=== PATIENT | female | born 1955 | race Caucasian/White ===

== ENCOUNTER 2023-08-05 06:35 | Day surgery (SDC) | payer MEDICARE, OTHER, SELFPAY ==
[2023-08-05 07:47] VITALS: BMI 21.5
[2023-08-05 07:57] VITALS: BP 120/77
[2023-08-05 08:02] VITALS: BMI 21.5
[2023-08-05 11:28] VITALS: BP 117/87
[2023-08-05 11:30] VITALS: BP 128/84
[2023-08-05 11:45] VITALS: BP 138/89
== END 2023-08-05 12:20 | disposition home or self-care (01) ==
LOC: SDS 06:35
PROVIDERS: ATTENDING PHYSICIAN Internal Medicine Gastroenterology
DX: C18.4 Malignant neoplasm of transverse colon (principal); K64.0 First degree hemorrhoids; K57.30 Diverticulosis of large intestine without perforation or abscess without bleeding; T18.4XXA Foreign body in colon, initial encounter; W44.8XXA Other foreign body entering into or through a natural orifice, initial encounter; K63.5 Polyp of colon
CPT/HCPCS: 45390; 88305; 88342

== ENCOUNTER → 2023-08-10 12:25 | Outpatient (REF) | payer MEDICARE, OTHER, SELFPAY ==
[2023-08-10 13:44] LABS: ALT (SGPT) 16 U/L (0-35); AST (SGOT) 30 U/L (14-36); Albumin 4.5 g/dl (3.5-5.0); Alkaline Phosphatase 102 U/L (38-126); Blood Urea Nitrogen 31 mg/dl (7-17); Calcium 10.8 mg/dl (8.4-10.2); Carbon Dioxide 30 mmol/L (22-30); Chloride 103 mmol/L (98-107); Glucose 91 mg/dl (70-99); Potassium 4.5 mmol/L (3.5-5.1); Sodium 141 mmol/L (135-145); Total Bilirubin 1.6 mg/dl (0.2-1.3); Total Protein 7.4 g/dl (6.3-8.2); eGFR 54.39
[2023-08-10 16:25] LABS: Direct Bilirubin 0.5 mg/dl (0.0-0.4)
== END ==
LOC: REG 12:25
PROVIDERS: ATTENDING PHYSICIAN Internal Medicine Gastroenterology; FAMILY PHYSICIAN Internal Medicine
DX: C18.4 Malignant neoplasm of transverse colon (principal)
CPT/HCPCS: 36415; 80053; 82248; 82378

== ENCOUNTER → 2023-08-11 14:12 | Outpatient (REF) | payer MEDICARE, OTHER, SELFPAY | LOC: HWRAD 14:12 | PROVIDERS: ATTENDING PHYSICIAN Internal Medicine Gastroenterology; FAMILY PHYSICIAN Internal Medicine | DX: C18.4 Malignant neoplasm of transverse colon (principal) | CPT/HCPCS: 71260; 74178; Q9967 ==

== ENCOUNTER → 2023-08-12 13:30 | Outpatient (REF) | payer MEDICARE, OTHER, SELFPAY | LOC: RAD 13:30 | PROVIDERS: ATTENDING PHYSICIAN Surgery; FAMILY PHYSICIAN Internal Medicine | DX: C18.4 Malignant neoplasm of transverse colon (principal) | CPT/HCPCS: 74019 ==

== ENCOUNTER 2023-09-03 12:42 | Inpatient (IN) | payer MEDICARE, OTHER, SELFPAY ==
[2023-08-31 12:03] VITALS: BMI 22.6
[2023-08-31 14:45] LABS: Blood Urea Nitrogen 22 mg/dl (7-17); Calcium 9.3 mg/dl (8.4-10.2); Carbon Dioxide 20 mmol/L (22-30); Chloride 110 mmol/L (98-107); Estimated Creatinine Clearance 55 ml/min; Glucose 89 mg/dl (70-99); Potassium 4.4 mmol/L (3.5-5.1); Sodium 141 mmol/L (135-145); eGFR > 60.00
[2023-08-31 14:50] LABS: INR 1.32; PT 16.2 Sec (11.4-14.6)
[2023-08-31 14:51] LABS: APTT 35.1 Sec (23.4-35.0)
--- NOTE | 2023-09-01 09:03 | PTCARENOTE ---
Patients 08/30 INR 1.32- Trina @ Dr. Martinez office notified
[2023-09-03] VITALS (9 sets, daily range): BP systolic 85–113; BP diastolic 66–81
[2023-09-03] MEDS: CELEBREX 200 MG PO (13:08)
[2023-09-03] MEDS: ENTEREG 12 MG PO (13:08)
[2023-09-03] MEDS: LYRICA 150 MG PO (13:09)
[2023-09-03] MEDS: TYLENOL 1000 MG PO (13:11)
[2023-09-03] MEDS: TRANSDERM-SCOP 1 PATCH TRANSDERM (13:15)
[2023-09-03 13:16] LABS: Hematocrit 27.6 % (37.0-47.0); Hemoglobin 8.9 g/dL (12.0-16.0); Mean Corp Hgb Conc. 32.2 g/dL (33.0-37.0); Mean Corpuscular Hgb 28.6 pg (27.0-31.0); Mean Corpuscular Volume 88.7 fL (81.0-99.0); Mean Platelet Volume 10.4 fL (7.4-10.4); Platelet Count 84 10^3/uL (130-400); Red Blood Cell Count 3.11 10^6/uL (4.20-5.40); White Blood Cell Count 4.4 10^3/uL (4.8-10.8)
[2023-09-03] MEDS: NORMOSOL-R 1000 IV ×2 (13:16→21:22)
[2023-09-03] MEDS: HEPARIN 5000 UNITS SC (14:28)
--- NOTE | 2023-09-03 19:11 | W.IMMPOSTOP ---
Addendum entered and electronically signed by Demarcus Harper MD 09/03/23 19:46:
Spoke with daughter Taylor via phone and updated her on patient's status
Original Note:
Surgical Immed Post Op Note
-
Primary Surgeon: Demarcus Harper MD
Assisting Surgeon: KIAN Mckeon
Pre-op Diagnosis: Ascending colon cancer
Post-op Diagnosis: Ascending colon cancer
Procedure Performed: Robotic right hemicolectomy, mesenteric angiography with ICG, laparoscopic TAP block
Anesthesia Type: General
Specimen / Cultures: Right hemicolectomy
Estimated Blood Loss: 25 mL
IVF: 2.8 L
UOP 85 mL
Complications: None
Operative Findings: Attempted Veress entry but returned clear fluid; performed Pfannenstiel cutdown; clear ascites was encountered on entry; explored abdomen; small deejay in liver capsule from Veress entry, not bleeding; liver very large and
fibrotic; no evidence of mets to the liver or peritoneum; identified tattoo at mid ascending colon; performed medial to lateral mobilization and performed high ligation ileocolic pedicle; entered the lesser sac and mobilized proximal transverse
colon and hepatic flexure; stapled terminal ileum 3 cm proximal from the ileocecal valve with 60 mm blue load; performed high ligation of the right colic and right branch of the middle colic; performed ICG and selected point in mid transverse for
transection; divided remainder of mesentery and stapled transverse colon with 60 mm blue load; performed isoperistaltic ileocolic stapled anastomosis with the 60 mm white load and oversewed, defect with 3-0 Stratafix
--- NOTE | 2023-09-03 19:35 | OR.RPT ---
Operative Report
Operative Report
DATE OF OPERATION: 09/03/2023
SURGEON: Demarcus Harper MD
PREOPERATIVE DIAGNOSIS: Ascending colon cancer
POSTOPERATIVE DIAGNOSIS: Ascending colon cancer
OPERATION: Robotic right hemicolectomy, mesenteric angiography with ICG, laparoscopic TAP block
ASSISTANTS:
1. KIAN Mckeon
ANESTHESIA: General
ESTIMATED BLOOD LOSS: 25 mL
UOP: 85 mL
IVF: 2.8 L mL
FINDINGS:
1. No concerning mets to the liver or peritoneum; liver was large and fibrotic; there were dilated mesenteric veins
2. Tattoo was in the mid ascending colon; performed high ligation of the ileocolic pedicle, the right colic and right branch of the middle colic
3. Performed ileal to mid transverse isoperistaltic stapled intracorporeal anastomosis; perfusion confirmed with firefly
SPECIMENS:
1. Right hemicolectomy
DRAINS: None
COMPLICATIONS: None
INDICATIONS: The patient is a 68-year-old female who underwent a colonoscopy in March [address] Pop. She had multiple subcentimeter tubular adenomas and a 1.5 cm transverse colon polyp that was tattooed. Dr. Valdez performed a
full-thickness resection of this polyp via colonoscopy and placed a clip for closure. The pathology came back adenocarcinoma with a positive margin. Therefore, I recommended surgery. An x-ray showed that the clip was in the ascending colon. The
operation was discussed with the patient in detail, including the risks, benefits and alternatives. Risks described included, but not limited to, bleeding, infection, anastomotic leak, damage to nearby structures (i.e.- bowel, bladder, solid organ
injury, ureter), need for ostomy creation, conversion to open, incisional hernia, inability to remove the entire cancer, future recurrence or metastasis and anesthetic risks. The patient understood and agreed to proceed.
PROCEDURE IN DETAIL: The patient was taken to the operating room and placed on the operating table in supine position. Sequential compression devices were placed bilaterally. General anesthesia was then induced and the patient was intubated without
complication. Bilateral arms were tucked. Gayle catheter was placed with sterile technique. Anesthesia placed an orogastric tube. Preoperative antibiotics were given. The abdomen was then prepped and draped in a sterile fashion. A marking pen
was used to adriana out the midline. A time-out was then performed verifying the correct patient, procedure, operative site, positioning, and special equipment.
At Groves's point, using an 11 blade scalpel, an 8 mm incision was made. A Veress needle was used to obtain abdominal access. After 3 clicks, insufflation was initiated and the opening pressure was noted to be greater than 8 mmHg. The Veress was
removed and serous fluid was noted dripping from the tip. A second attempt at needle placement was performed, but the 3 clicks were not obvious. I decided to start with a Pfannenstiel cutdown and removed the Veress. Again, clear fluid was noted
dripping from the tip. A 5 cm Pfannenstiel incision was made with a 15 blade scalpel 2 fingerbreadths superior to the pubic symphysis. I took this down to the level of fascia with Bovie electrocautery and hemostasis was assured. The anterior
fascia was then incised with electrocautery and extended to just beyond the length of the Pfannenstiel incision on each side. Using madeleine's, the anterior fascia was grasped and elevated. The attachments to the rectus muscle were taken down
bluntly and attachments to the midline were taken down with electrocautery. This was done both superiorly and inferiorly to our incision. Then, the midline was split, first with electrocautery and then with Kellys to spread the rectus muscle. The
preperitoneal fat was and the peritoneum was grasped and elevated. The peritoneum was divided with Metzenbaum scissors, taking care to avoid injury to intraperitoneal structures, and the abdomen was entered. The peritoneum was opened
superiorly and inferiorly to the extent that our incision would allow, taking care to avoid injury to the bladder. A small Taran was placed and a port cap attached. The 12 mm robotic port was placed through the port cap. The abdomen was
insufflated to a pressure of 12, which the patient tolerated well. The abdomen was explored. I identified the entry point of the Veress needle and immediately below it was a deejay on the liver capsule. However, there was no bleeding from the neck
on the liver capsule, so this was likely superficial. The liver was very large and extended across the entire upper abdomen. The liver had fibrotic changes to it with a liver cyst on the anterior left lobe. No concerning liver mets were noted.
No peritoneal lesions were noted. Within the pelvis, there were dilated veins within the distribution of the colon mesentery, concerning for possible portal hypertension. During the operation, dilated veins were also noted in the mesentery of the
right colon. The tattoo was not obviously visualized at this point.
In a diagonal fashion from the Pfannenstiel incision to the Groves's point incision, 2 more robotic trocars were placed under direct visualization taking care to avoid injury to the epigastric vessels. An assist port was placed in the left lateral
abdomen under direct visualization as well. Then, the patient was placed in [id number] with slight Trendelenburg. The robot was docked from the patient's right side. From the Pfannenstiel to Groves's point, the instruments introduced were the
bipolar grasper, camera, scissors and tip up grasper. To begin, I grasped and elevated the cecum. I swept the small bowel towards the pelvis. Using my tip-up grasper, I retracted the transverse colon. The ileocolic pedicle was nicely exposed. A
medial to lateral mobilization was performed by first incising the peritoneal lining just below the pedicle using the robotic scissors. I elevated the pedicle anteriorly and swept the retroperitoneum down bluntly in order to identify the duodenum.
Once the duodenum was swept away from the takeoff of the ileocolic pedicle, I isolated the ileocolic pedicle circumferentially and performed a high ligation using the vessel sealer. The ileocolic stump was hemostatic. I continued my medial to
lateral dissection up to the hepatic flexure and then below the right colon and cecum, taking care to avoid injury to the duodenum, right kidney and right ureter.
After the right colon was completely mobilized medially, I turned my attention to the transverse colon. I grasped and elevated the omentum while retracting the transverse colon caudally. I divided the gastrocolic ligament and entered the lesser
sac. I carried this dissection around the hepatic flexure using a combination of blunt dissection and the vessel sealer, taking care to avoid injury to the liver, gallbladder, duodenum and pancreas. Once the hepatic flexure was completely mobilized,
I continued this dissection by taking down the white line of Toldt to my previous dissection of the cecum. I mobilized the attachments of the appendix, terminal ileum and its mesentery from the RLQ and right pelvic brim, taking care to avoid injury
to the right ureter. At this point, the entire cecum, right colon and hepatic flexure were nicely mobilized. I selected a point about 2�3 cm proximal from the ileocecal valve and elevated this with my tip up grasper. I grasped the transected
ileocolic pedicle on the specimen side and used the vessel sealer to serially ligate the mesentery up to my selected point on the terminal ileum. I stapled and divided the terminal ileum with the 60 mm robotic stapler with a blue load.
Next, I grasped the transverse colon and elevated this in order to expose and visualize the mesentery. I serially divided the mesentery towards the mid transverse colon, taking care to avoid injury to the duodenum and pancreas, ligating the right
colic and the right branch of the middle colic as close to its takeoff as possible. I continued this up to the mid-transverse colon. Anesthesia injected ICG and I confirmed adequate perfusion to my intended transection point. I cleaned up the
mesentery and epiploica circumferentially from this point. Using the 60 mm robotic stapler with a blue load, I stapled and divided the transverse colon. The specimen was then placed in the pelvis.
I examined the bowel for my future anastomosis. I placed the terminal ileum adjacent to the transverse colon. This aligned nicely for a [id number] isoperistaltic anastomosis without any evidence of tension. The angle from the Pfannenstiel port
was estimated and the stapler would reach for the anastomosis. I measured 7 cm distal from the staple line on the transverse colon and 2 cm proximal from the staple line on the terminal ileum. I then created a colotomy at about 7 cm distal to the
staple line on the transverse colon and an enterotomy 2 cm proximal to the staple line on the terminal ileum. I advanced the 60 mm robotic stapler with a white load through the bowel openings, ensured ideal alignment and fired. After the robotic
stapler was withdrawn, no bleeding was noted from the staple line. The common defect was then closed using a 3-0 V-Loc suture in 2 layers, starting from the superior aspect and sewing inferiorly in a running baseball fashion, and then superiorly in
a running Jeanette fashion in order to imbricate the first layer.
After the anastomosis was complete, the operative field was examined. There was complete hemostasis, no bowel herniating through the mesenteric defect and good perfusion to our anastomosis without any evidence of tension. The greater omentum was
evaluated and appeared well-vascularized. The omentum was then draped over the anastomosis.
The instruments were removed and the robot was undocked. The specimen was removed through the Pfannenstiel incision. The specimen was evaluated on the back-table and the margins were noted to be adequate. A TAP block was performed under
laparoscopic guidance. 15mL of 0.25% Marcaine with dexamethasone was injected bilaterally. The ports were then removed under direct visualization and no bleeding was noted. The abdomen was allowed to desufflate. The Pfannenstiel incision was
closed in layers. Using an 0 Vicryl stitch, the peritoneum was closed in a running fashion. The fascia was closed with a 0 Stratafix suture. The incisions were irrigated and then injected with the remaining 30mL of local. The skin of the
incisions were closed with a 4-0 Monocryl in running subcuticular fashion and dressed with Dermabond.
At this point, the procedure was complete. The patient was awoken and extubated without complication. All needle, sponge and instrument counts were reported as correct. The patient tolerated the procedure well and was transferred to the recovery
room in stable condition with the gayle in place.
DICTATED BY: Demarcus Harper MD
--- NOTE | 2023-09-03 19:49 | CON.HOSP ---
Family Physician
-
Family Physician: Jules Masterson
Chief Complaint
-
postop
History of Present Illness
68-year-old female past medical history of ascending colon cancer, Hodgkin's lymphoma, ITP, atrial fibrillation on Xarelto, AV block status post pacemaker, nonischemic cardiomyopathy, severe tricuspid regurgitation, GERD who underwent robotic right
hemicolectomy for ascending colon cancer. Procedure went smoothly and patient required low-dose Levophed during the procedure which was eventually weaned off.
Patient had minimal blood loss during surgery. She received 2 L of IV fluids during the surgery.
Patient currently has a Newton catheter. No drains present. She is currently on 4 L facemask, still asleep after receiving anesthesia. Systolic blood pressure in the 90s. She is currently receiving IV fluids.
Medical History
Past Medical History
Past Medical History: Reports Other (ascending colon cancer, Hodgkin's lymphoma, ITP, atrial fibrillation on Xarelto, AV block status post pacemaker, nonischemic cardiomyopathy, severe tricuspid regurgitation, GERD)
Past Surgical History: Reports Other (pacemaker )
Social History
Tobacco: Non-smoker
Alcohol: None
Drug: None
Family History
Family History: Reviewed & Not Pertinent
Allergies / Home Medications
Allergies reflects when Allergies were last updated in [facility].
Home Medications with original date entered in [facility]
Allergy/Medication List:
Allergies
Allergy/AdvReac Type Severity Reaction Status Date / Time
No Known Drug Allergies Allergy NA Verified 08/30/23 11:39
pollen extracts Allergy congestion Verified 08/30/23 11:39
Home Medications
calcium carbonate 600 mg-vitamin D3 5 mcg (200 unit) tablet 1 tab PO BID 08/05/23
carvedilol 25 mg tablet 25 mg PO BID 08/05/23
rivaroxaban 20 mg tablet (Xarelto) 20 mg PO DAILY 08/05/23
sodium sul 1.479 gram-potas ch 0.188 gram-magnes sul 0.225 gram tablet (Sutab) 1 tab PO DIRECTED 08/30/23
Review of Systems
-
Unable to obtain full review of systems at this time due to: Patient Non-verbal
History Source: Physician
A 12 point Review of Systems was completed except as noted: No
Physical Exam
Vital Signs
Vital Signs
Temp Pulse Resp BP Pulse Ox
97.2 F 70 16 110/67 98
09/03/23 12:31 09/03/23 12:31 09/03/23 12:31 09/03/23 12:31 09/03/23 12:31
Physical Exam
General: Well Developed, Well Nourished and No Apparent Distress
HEENT: Normocephalic, Moist Mucous Membranes and Atraumatic
Respiratory: Clear
Cardiac: S1/S2 and Regular Rhythm; Negative Murmur or Rub
GI: Soft, Non Tender, Non Distended and Normal Bowel Sounds
Rectal: Deferred by Provider
Musculoskeletal: No Clubbing, No Cyanosis and No Edema
Skin: Negative Rash
Neuro: Nonfocal/Grossly Intact
Laboratory Results
-
PT 16.2 Sec (11.4-14.6) H 08/31/23 11:57
INR 1.32 08/31/23 11:57
APTT 35.1 Sec (23.4-35.0) H 08/31/23 11:57
Total Bilirubin Cancelled 08/31/23 11:57
AST Cancelled 08/31/23 11:57
ALT Cancelled 08/31/23 11:57
Alkaline Phosphatase Cancelled 08/31/23 11:57
Data Reviewed
-
Lab Data: Labs Reviewed
Old Records: Reviewed
Impression / Plan
-
IMPRESSION:
PLAN:
# Ascending colon cancer status post right hemicolectomy
-systolic BP 90s
-Being managed by colorectal surgery
-Patient currently off of Levophed
-Maintain MAP greater than 65
-Continue IV fluids
# Normocytic anemia unknown chronicity
-Hemoglobin 8.9
-Continue to monitor
Hodgkin's lymphoma
ITP
-Platelets of 84, continue to monitor
Paroxysmal atrial fibrillation
-Hold Xarelto
History of AV block status post pacemaker
Nonischemic cardiomyopathy
-Hold Coreg
-Chest x-ray from 3 days ago showing small right pleural effusion, moderate cardiomegaly
-Patient currently on 4 L facemask, but suspect can wean off when she is awake
-check I/Os
-Monitor for heart failure
Severe tricuspid regurgitation
GERD
[2023-09-03 19:59] LABS: % Basophils 0.7 % (0-2); % Eosinophils 0.4 % (0-6); % Immature Granulocytes 0.4 % (0-0.5); % Lymphocytes 6.7 % (20.5-51.1); % Monocytes 1.6 % (1.7-9.3); % Neutrophils 90.2 % (42.2-75.2); Absolute Lymphocytes 0.3 10^3/uL (1.2-3.4); Absolute Monocytes 0.1 10^3/uL (0.1-0.6); Hematocrit 26.5 % (37.0-47.0); Hemoglobin 8.3 g/dL (12.0-16.0); Mean Corp Hgb Conc. 31.3 g/dL (33.0-37.0); Mean Corpuscular Hgb 28.3 pg (27.0-31.0); Mean Corpuscular Volume 90.4 fL (81.0-99.0); Mean Platelet Volume 10.4 fL (7.4-10.4); Nucleated Red Blood Cells % 0 %; Platelet Count 66 10^3/uL (130-400); Red Blood Cell Count 2.93 10^6/uL (4.20-5.40); Red Cell Dist. Width 14.2 % (11.5-14.5); White Blood Cell Count 4.5 10^3/uL (4.8-10.8)
[2023-09-03 20:13] LABS: Blood Urea Nitrogen 17 mg/dl (7-17); Calcium 7.5 mg/dl (8.4-10.2); Carbon Dioxide 20 mmol/L (22-30); Chloride 108 mmol/L (98-107); Estimated Creatinine Clearance 71 ml/min; Glucose 122 mg/dl (70-99); Magnesium 2.3 mg/dl (1.6-2.3); Sodium 137 mmol/L (135-145); eGFR > 60.00
--- NOTE | 2023-09-03 23:37 | PTCARENOTE ---
Pt arrived to ICU room 3362 from PACU at 2100. Pt is s/p robotic right hemicolectomy, x5 laproscopic sites to abd closed with surgical glue. Upon arrival pt not c/o any pain or nausea, and has not had any complaints so far. Tolerated sips of water.
Pt with left radial arterial line, has been maintaining BP without pressors. Normosol infusing at 50ml/hr. 100% v paced on monitor, HR 70. SpO2 98% on 4LNC. See nursing shift assessment flowsheet for full assessment details.
[2023-09-04] VITALS (19 sets, daily range): BP systolic 70–139; BP diastolic 60–98; PULSE 74; O2SAT 97; BMI 23.3
[2023-09-04] MEDS: TYLENOL PO (00:15)
[2023-09-04] MEDS: TYLENOL 1000 MG PO ×4 (04:39→23:38)
[2023-09-04] MEDS: NORMOSOL-R 1000 IV ×2 (04:43→23:38)
[2023-09-04 04:51] LABS: % Basophils 0.2 % (0-2); % Immature Granulocytes 0.3 % (0-0.5); % Lymphocytes 7.6 % (20.5-51.1); % Monocytes 1.9 % (1.7-9.3); Absolute Lymphocytes 0.5 10^3/uL (1.2-3.4); Absolute Monocytes 0.1 10^3/uL (0.1-0.6); Absolute Neutrophils 5.7 10^3/uL (1.4-6.5); Hematocrit 27.3 % (37.0-47.0); Hemoglobin 8.9 g/dL (12.0-16.0); Mean Corp Hgb Conc. 32.6 g/dL (33.0-37.0); Mean Corpuscular Hgb 29.2 pg (27.0-31.0); Mean Corpuscular Volume 89.5 fL (81.0-99.0); Mean Platelet Volume 11.6 fL (7.4-10.4); Nucleated Red Blood Cells % 0 %; Platelet Count 79 10^3/uL (130-400); Red Blood Cell Count 3.05 10^6/uL (4.20-5.40); Red Cell Dist. Width 14.1 % (11.5-14.5); White Blood Cell Count 6.4 10^3/uL (4.8-10.8)
[2023-09-04 05:02] LABS: INR 1.34; PT 16.7 Sec (11.4-14.6)
[2023-09-04 05:03] LABS: APTT 35.1 Sec (23.4-35.0)
--- NOTE | 2023-09-04 05:08 | PTCARENOTE ---
Assessment unchanged. O2 weaned to 2LNC and pt has been maintaining SpO2 97%. BP has been WNL all shift, most recently in 120s-130s/70s-80s on both arterial line and cuff. No c/o pain or nausea. Pt has been sleeping most of the shift.
[2023-09-04 05:30] LABS: Blood Urea Nitrogen 16 mg/dl (7-17); Calcium 8.1 mg/dl (8.4-10.2); Carbon Dioxide 18 mmol/L (22-30); Chloride 109 mmol/L (98-107); Estimated Creatinine Clearance 71 ml/min; Glucose 120 mg/dl (70-99); Magnesium 2.4 mg/dl (1.6-2.3); Potassium 4.1 mmol/L (3.5-5.1); Sodium 138 mmol/L (135-145); eGFR > 60.00
[2023-09-04] MEDS: ENTEREG 12 MG PO ×2 (07:35→20:37)
[2023-09-04] MEDS: TORADOL 15 MG IV ×3 (08:17→20:37)
--- NOTE | 2023-09-04 09:03 | CON.INTV ---
Consultation
Consultation Request
Date/Time Consultation Requested: 09/04/2023854
Date/Time Consultation Performed: 09/04/2023909
Requesting Provider: Dr. Rubin
Performing Provider: Dr. Nelson
Reason for Consultation: post-op management
Medical History
-
Chief Complaint: Colon mass/Elective right hemicolectomy
History of Present Illness:
68-year-old female nonsmoker with a past medical history of AV block s/p PPM, A-fib on Xarelto and thrombocytopenia who presents with elective right-sided hemicolectomy due to recently diagnosed invasive adenocarcinoma seen at the transverse colon
on colonoscopy from 08/05/2023. She then had a CT chest, abdomen, pelvis on 08/11/2023 showing no evidence of metastatic disease within the chest, abdomen or pelvis with a nonspecific soft tissue nodule/lymph node of 7 mm in the left upper quadrant at
the splenic flexure. There also was a mildly dilated ascending thoracic aorta measuring 4.1 cm. She discussed surgical resection with colorectal surgery on 08/12/[address] Harper. On 09/03/2023 she underwent robotic right hemicolectomy with
mesenteric angiography with indocyanine green fluorescence, and a laparoscopic tap block. EBL was 25 mL and there were no complications. Patient was transferred to the ICU postoperatively and critical care services now consulted for additional
management/recommendations.
When I saw the patient today she was sitting in chair on room air breathing comfortably in no acute distress. Heart rate 77, BP 104/71. She says she is passing gas, no BM since yesterday. She is on a full liquid diet and is tolerating this well.
No acute events reported overnight.
PMHx: Thrombocytopenia, s/p PPM due to AV block, history of Hodgkin's lymphoma, history of A-fib on Xarelto, heartburn
PSHX: s/p pacemaker (1994), tonsillectomy
Past Medical History
Past Medical History: Other (Above as per HPI)
Past Surgical History: Other (Above as per HPI)
Social History
Tobacco: Non-smoker
Alcohol: Occasional (2-3 times a week)
Drug: None
Family History
Family History: Cancer (Father: Colon cancer; mother: Brain cancer)
Allergies / Home Medications
Allergies
Allergy/AdvReac Type Severity Reaction Status Date / Time
No Known Drug Allergies Allergy NA Verified 08/30/23 11:39
pollen extracts Allergy congestion Verified 08/30/23 11:39
Home Medications
�Medication �Instructions �Recorded �Confirmed �Last Taken �Type
calcium carbonate 600 mg-vitamin 1 tab PO BID Supplement 08/05/23 09/03/23 08/27/23 History
D3 5 mcg (200 unit) tablet
carvedilol 25 mg tablet 25 mg PO BID Blood Pressure 08/05/23 09/03/23 09/03/23 11:00 History
rivaroxaban 20 mg tablet (Xarelto) 20 mg PO DAILY Blood Clot 08/05/23 09/03/23 08/29/23 History
Prevention/Tx
sodium sul 1.479 gram-potas ch 1 tab PO DIRECTED 08/30/23 09/03/23 09/02/23 21:00 History
0.188 gram-magnes sul 0.225 gram
tablet (Sutab)
Review of Systems
-
History Source: Patient
All other systems: Negative unless noted
Vitals / Labs / Diagnostic Testing
Vital Signs
Temp Pulse Resp BP Pulse Ox
98.3 F 74 18 127/98 97
09/04/23 07:00 09/04/23 08:45 09/04/23 08:45 09/04/23 08:00 09/04/23 08:15
Lab Data
09/04/23 04:36
09/04/23 04:36
Laboratory Results
09/04/23
04:36
PT 16.7 H
INR 1.34
APTT 35.1 H
Diagnostic Testing:
Physical Exam
-
HEENT: Normocephalic and Anicteric
Cardiovascular: S1/S2 and Peripheral Edema (Negative)
Respiratory: Clear, Wheeze (Negative), Rales (Negative), Rhonchi (Negative) and Non-Labored Respirations
GI: Soft, Non Distended, Non Tender and Normal Bowel Sounds
Neurology: AO x 3 and Tremors (Negative)
Skin: Warm and Dry
General: Comfortable and Chills (Negative)
Assessment
-
Assessment: 68-year-old female nonsmoker with a past medical history of AV block s/p PPM, A-fib on Xarelto and thrombocytopenia who presents with elective right-sided hemicolectomy due to recently diagnosed invasive adenocarcinoma seen at the
transverse colon on colonoscopy from 08/05/2023. She then had a CT chest, abdomen, pelvis on 08/11/2023 showing no evidence of metastatic disease within the chest, abdomen or pelvis with a nonspecific soft tissue nodule/lymph node of 7 mm in the left
upper quadrant at the splenic flexure. There also was a mildly dilated ascending thoracic aorta measuring 4.1 cm. She discussed surgical resection with colorectal surgery on 08/12/[address] Harper. On 09/03/2023 she underwent robotic right
hemicolectomy with mesenteric angiography with indocyanine green fluorescence, and a laparoscopic tap block. EBL was 25 mL and there were no complications. Patient was transferred to the ICU postoperatively and critical care services now consulted
for additional management/recommendations.
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
Impression:
#Invasive adenocarcinoma found on colonoscopy on 08/05/2023 the transverse colon, now s/p robotic right hemicolectomy with mesenteric angiography with ICG and laparoscopic tap block - POD#1
#Anemia
#Chronic thrombocytopenia (baseline plt 80s-100s)
#Non-anion gap metabolic acidosis
Plan:
- Postoperative management as per colorectal surgery
- Pain control
- Trend CBC and transfuse Hb if needed to maintain >7g/dL, and plt>50k (given her post-operative status)
- On full liquid diet --> ADAT as per surgery
- Maintain SpO2 >90-94%
- Maintain MAP>65
- Replete electrolytes with K>4, Mg>2
- Maintain euglycemia with goal BG 140-180
- prn nebulized bronchodilators
- Incentive spirometer encouraged
- DVT ppx
Patient is stable for downgrade out of ICU to IMU. Air Twister Winder/Pulmonary service will now sign off. Thank you for allowing us to be involved in the care of this patient. Please reconsult if there are any additional questions/concerns, or if
patient's respiratory status deteriorates.
Data:
CT Chest/Abd/pelvis 08-11-2023:
1. No definitive evidence for metastatic disease within the chest, abdomen, and pelvis. Nonspecific soft tissue nodule/lymph node measuring up to 7 mm within the left upper quadrant in the region of the splenic flexure.
2. Mildly dilated ascending thoracic aorta measuring 4.1 cm.
3. Cardiomegaly with significant enlargement of the right atrium and ventricle with significant contrast reflux into the hepatic veins and IVC.
Total time spent today was 55 minutes for this encounter. Time includes reviewing laboratory test/imaging results, reviewing pertinent medical records, obtaining and reviewing medical history, performing an appropriate exam, ordering medications,
tests and procedures. Time also includes documentation of this encounter, coordinating patient care and communicating with other healthcare professionals. Total time does not include separately billed tests performed on this date of service.
--- NOTE | 2023-09-04 09:35 | PTCARENOTE ---
Assumed care at 0700. Pt is s/p robotic right hemicolectomy, x5 laproscopic sites to abd closed with surgical glue. Not c/o any pain or nausea. Tolerating sips of water. Pt excessively restless and fidgety. States she can 'see old friends in the
room but then they disappear. Radial arterial line removed due to frequent alarming r/t position and has been maintaining BP without pressors. Normosol infusing at 50ml/hr. 75% v paced on monitor, HR 70. SpO2 97% on RA. Pt assisted OOB to chair with
standby assistance. Chair alarm in place. See nursing shift assessment flowsheet for full assessment details.
--- NOTE | 2023-09-04 10:39 | PTCARENOTE ---
IVF stopped, gayle removed. Scopolamine patch removed due to confusion and restlessness as ordered.
--- NOTE | 2023-09-04 10:54 | CM ---
CM following re:discharge planning.
Reviewed pt's chart, met with pt.
PT is a 68 year old female, admitted with primary dx of POD # 1 Robotic right hemicolectomy.
Pt reports she lives alone in a 2SH, 3 steps to enter, has supportive daughter and a dog. 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 No DME, VN or SNF history.
PCP: Jules Masterson
[facility]
D/C plan: home with anticipated no needs. Daughter to transport at discharge.
CM will follow with discharge plan updates as hospitalization progresses
--- NOTE | 2023-09-04 11:40 | W.PN.CRS1 ---
Today's Communication / Plan
-
Mildly confused but orientable; DC scopolamine and Lyrica
Advance to fulls
DC Newton
Start Lovenox DVT PPx
Assessment/Plan
-
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 Mcclellan), AV block s/p PPM, A-fib (on Xarelto), severe TR, CHF (last EF 55%), GERD, Hodgkin's lymphoma at 23 years old and ascending colon cancer who presents for elective
surgery
POD 1 robotic RHC, tap block
WBC 6.4, Hb 8.9 from 8.3, CR 0.7, UOP 550 for 12 hours
� Mildly confused but oriented, no focal deficits; will DC the scopolamine patch and Lyrica; may also be lingering side effects from anesthesia
� Okay to advance to full liquids, instructed to go slow and discussed with nurse
� Continue pain control with Tylenol, Toradol, low-dose IV Dilaudid as needed; continue Entereg
� Start DVT PPx with Lovenox, hold Xarelto for now
� Ambulate twice daily and OOBTC, encourage IS
� DC Lamar, monitor for void
� Appreciate hospitalist
Subjective Data
Subjective Data
Date of Service: September 04, 2023
No overnight events. Acting a little agitated (picking at wires/lines) and having a hard time focusing, but answering questions appropriately.
Pain controlled.
Denies nausea/vomiting. Tolerating clears.
-flatus -BMs + Newton
Pt is OOB.
Objective Data
-
Vital Signs
Temp Pulse Resp BP Pulse Ox
98.3 F 71 23 121/96 92
09/04/23 07:00 09/04/23 11:00 09/04/23 11:00 09/04/23 10:46 09/04/23 11:00
Intake & Output
09/03/23 09/04/23 09/05/23
06:59 06:59 06:59
Intake Total 960 / 1010 600 / 600
Output Total 550 / 550 235 / 235
Balance 410 / 460 365 / 365
Intake:
Oral fluids 360 / 360 500 / 500
IV fluids (Total) 600 / 650 100 / 100
normosol 600 / 650 100 / 100
Output:
Urine, Newton 550 / 550 235 / 235
Lab Results
09/04/23 04:36
09/04/23 04:36
Physical Exam
-
General: No Acute Distress and AOx3 (Somewhat confused (was unclear about what time of day it was), picking at her wires and lines, easily oriented and answering questions appropriately)
HEENT: Grossly Normal
Abdomen: Soft, Non Distended, Tender (Appropriately tender near incisions), No Guarding and No Rebound
Neurological: Other (No focal deficits, moving all extremities)
Skin: Warm and Dry
Wound: No Signs of Infection, Dressing in Place (Dermabond), No Skin Erythema and Other (No purulent drainage)
--- NOTE | 2023-09-04 11:56 | PTCARENOTE ---
Tolerated clears with no nausea. Pt reported +flatus.
--- NOTE | 2023-09-04 13:25 | W.PN.HOSP.TC ---
Today's Communication/Plan
-
Trend CBC
Restart carvedilol with hold parameters
Monitor for diet well
Monitor mentation
Assessment / Plan
Assessment / Plan
# Ascending colon cancer status post right hemicolectomy
-Being managed by colorectal surgery
-Patient currently off of Levophed
-BP stabilized
-Continue IV fluids
-started on diet-fulls
-Pain control
-TOV today
-Further management per primary
#Toxic metabolic encephalopathy earlier today likely secondary to scopolamine patch versus likely postanesthesia versus delirium
Patch has been removed.
Mentation patient to monitor closely.
# Normocytic anemia unknown chronicity
-Hemoglobin 8.9
-Continue to monitor. Transfuse hemoglobin less than 7.
Hodgkin's lymphoma
ITP
-Platelets of 79continue to monitor
Paroxysmal atrial fibrillation
-Hold Xarelto. Restart pending primary clearance.
History of AV block status post pacemaker
Nonischemic cardiomyopathy
-restart Coreg with holding parameters
-Chest x-ray from 3 days ago showing small right pleural effusion, moderate cardiomegaly
-check I/Os
-Monitor for heart failure
Severe tricuspid regurgitation
DVT prophylaxis SCDs and Xarelto on hold
Anticipated Discharge: > 48 hours
Subjective/Interval History
-
Date of Service: September 04, 2023
Sitting in chair
mild abd discomfort
trying liqudis
Objective Data
-
Labs:
Laboratory Results
09/04/23
04:36
WBC 6.4
Hgb 8.9 L
Hct 27.3 L
Plt Count 79 L
PT 16.7 H
INR 1.34
APTT 35.1 H
Sodium 138
Potassium 4.1
Chloride 109 H
Carbon Dioxide 18 L
BUN 16
Creatinine 0.7
Glucose 120 H
Calcium 8.1 L
Vital Signs:
Vital Signs
Temp Pulse Resp BP Pulse Ox
98.4 F 70 15 104/71 92
09/04/23 11:20 09/04/23 12:45 09/04/23 12:45 09/04/23 12:27 09/04/23 11:00
I&O
09/03/23 09/04/23 09/05/23
06:59 06:59 06:59
Intake Total 960 / 1010 600 / 600
Output Total 550 / 550 235 / 235
Balance 410 / 460 365 / 365
Physical Exam
-
General: Well Developed and No Apparent Distress
HEENT: Normocephalic, Atraumatic and Moist Mucous Membranes
Respiratory: Clear to Auscultation
Cardiac: Regular Rhythm and S1/S2; Negative Murmur, Rub or Gallop
GI: Tender and Distended; Negative Organomegaly
Rectal: Deferred by Provider
Musculoskeletal: No Clubbing, No Cyanosis and No Edema
Skin: Negative Rash
Neuro: Awake and No Motor Deficits
Psych: Calm
--- NOTE | 2023-09-04 16:24 | PTCARENOTE ---
Confusion, restlessness, and hallucinations continue. VSS. Tolerating full liq diet.
--- NOTE | 2023-09-04 17:49 | PTCARENOTE ---
Did not meet DTV after gayle removal. Attempted bladder scan with pt in recliner. Only able to scan 7cc with multiple trys. Pt states feeling no urge to void. Will attempt to scan when returned to bed.
[2023-09-04] MEDS: COREG 25 MG PO (20:37)
--- NOTE | 2023-09-04 21:10 | PTCARENOTE ---
Assumed care of pt at 1900. Pt OOB to chair at start of shift and remains OOB. Pt has been A/O x4 so far this shift, appropriate with responses and pleasant and cooperative with care. Pt acknowledging that she was confused today and 'having problems
with her memory'. Pt ambulated to BR with rolling walker and standby assistance, ambulated with steady gait and then sat back down in chair, chair alarm activated. 100% V Paced on monitor with BBB. Pt reports 3/10 pain to abd, worse after eating and
when standing, no c/o nausea. Scheduled Toradol administered. See nursing shift assessment flowsheet for full assessment details. Call elias and personal belongings within reach.
--- NOTE | 2023-09-04 23:23 | PTCARENOTE ---
Pt's BP has been running low, 80s/60s, MAP >65 and pt is asymptomatic. TT sent to house provider Adrianne WILSON to make her aware, IVF reordered.
[2023-09-05] VITALS (12 sets, daily range): BP systolic 93–123; BP diastolic 68–86; BMI 23.4
[2023-09-05] MEDS: TORADOL 15 MG IV ×2 (02:59→08:12)
[2023-09-05 05:41] LABS: % Basophils 0.4 % (0-2); % Eosinophils 0.5 % (0-6); % Immature Granulocytes 0.4 % (0-0.5); % Lymphocytes 19.4 % (20.5-51.1); % Monocytes 7.6 % (1.7-9.3); % Neutrophils 71.7 % (42.2-75.2); Absolute Lymphocytes 1.5 10^3/uL (1.2-3.4); Absolute Monocytes 0.6 10^3/uL (0.1-0.6); Absolute Neutrophils 5.7 10^3/uL (1.4-6.5); Hematocrit 25.3 % (37.0-47.0); Hemoglobin 8.4 g/dL (12.0-16.0); Mean Corp Hgb Conc. 33.2 g/dL (33.0-37.0); Mean Corpuscular Hgb 28.6 pg (27.0-31.0); Mean Corpuscular Volume 86.1 fL (81.0-99.0); Nucleated Red Blood Cells % 0 %; Platelet Count 85 10^3/uL (130-400); Red Blood Cell Count 2.94 10^6/uL (4.20-5.40); Red Cell Dist. Width 14.1 % (11.5-14.5); White Blood Cell Count 7.9 10^3/uL (4.8-10.8)
[2023-09-05] MEDS: TYLENOL PO (05:46)
[2023-09-05 06:00] LABS: ALT (SGPT) 12 U/L (0-35); AST (SGOT) 26 U/L (14-36); Alkaline Phosphatase 77 U/L (38-126); Blood Urea Nitrogen 32 mg/dl (7-17); Calcium 8.4 mg/dl (8.4-10.2); Carbon Dioxide 23 mmol/L (22-30); Chloride 105 mmol/L (98-107); Estimated Creatinine Clearance 38 ml/min; Glucose 108 mg/dl (70-99); Potassium 4.2 mmol/L (3.5-5.1); Sodium 136 mmol/L (135-145); Total Bilirubin 1.3 mg/dl (0.2-1.3); Total Protein 5.2 g/dl (6.3-8.2); eGFR 44.51
[2023-09-05] MEDS: ENTEREG 12 MG PO (08:12)
[2023-09-05] MEDS: COREG 25 MG PO (08:12)
[2023-09-05] MEDS: NSS 1000 IV ×2 (08:53→17:19)
--- NOTE | 2023-09-05 09:25 | PTCARENOTE ---
Assumed care of pt. VSS. Pt sleeping but easily awakened, oriented, following commands. No restlessness or fidgeting noted at this time. IVF changed as ordered. Plan of care discussed.
--- NOTE | 2023-09-05 10:05 | CON.CAR ---
Consultation
Consultation Request
Date/Time Consultation Requested: 09/05/2023
Date/Time Consultation Performed: 09/05/2023
Requesting Provider: Dr. Harper
Performing Provider: Dr. Singletary
Reason for Consultation: Valvular heart disease
Medical History
-
Chief Complaint: Valvular heart disease
History of Present Illness:
67-year-old female (known to Dr. Dobson, her primary Cadet Deck at [facility]) with heart block status-post permanent pacemaker implantation, paroxysmal atrial fibrillation (on Xarelto), NICM (current EF unknown), severe tricuspid
regurgitation, and recently discovered colon cancer status-post right hemicolectomy on 09/03/2023; Cardiology consulted for valvular heart disease.
Past Medical History
Past Medical History: Arrhythmias (PAF, pacemaker), CHF (Nonischemic cardiomyopathy), Valvular Disease (Tricuspid regurgitation) and Other (Hodgkin's lymphoma, ITP)
Past Surgical History: Bowel Resection (This admission right hemicolectomy ) and Cardiac (Pacemaker)
Social History
Tobacco: Non-Smoker
Alcohol: Occasional
Drug: None
Family History
Family History: Reviewed & Not Pertinent
Allergies / Home Medications
Allergy/AdvReac Type Severity Reaction Status Date / Time
No Known Drug Allergies Allergy NA Verified 08/30/23 11:39
pollen extracts Allergy congestion Verified 08/30/23 11:39
�Medication �Instructions �Recorded �Confirmed �Type
calcium carbonate 600 mg-vitamin 1 tab PO BID Supplement 08/05/23 09/03/23 History
D3 5 mcg (200 unit) tablet
carvedilol 25 mg tablet 25 mg PO BID Blood Pressure 08/05/23 09/03/23 History
rivaroxaban 20 mg tablet (Xarelto) 20 mg PO DAILY Blood Clot 08/05/23 09/03/23 History
Prevention/Tx
sodium sul 1.479 gram-potas ch 1 tab PO DIRECTED Supplement 08/30/23 09/03/23 History
0.188 gram-magnes sul 0.225 gram
tablet (Sutab)
Review of Systems
-
History Source: Patient
All other systems: Negative unless noted
Physical Exam
Vital Signs
Temp Pulse Resp BP Pulse Ox
98.1 F 70 12 107/77 95
09/05/23 08:02 09/05/23 08:00 09/05/23 08:00 09/05/23 08:00 09/05/23 08:00
Lab Results
09/05/23 05:32
09/05/23 05:32
Physical Exam
General: No Apparent Distress and Comfortable
HEENT: Normocephalic and Anicteric
Respiratory: Clear
Cardiac: S1/S2, Regular Rhythm and Murmur (-06/01)
Breast: Deferred by me
GI: Soft
Rectal: Deferred by Provider
Musculoskeletal: No Clubbing, No Cyanosis and No Edema
Skin: Dry
Neuro: AO x 3
Psych: Calm
Impression / Plan
-
67-year-old female (known to Dr. Dobson, her primary [employer]et De[employer] at [facility]) with heart block status-post permanent pacemaker implantation, paroxysmal atrial fibrillation (on Xarelto), NICM (current EF unknown), severe tricuspid
regurgitation, and recently discovered colon cancer status-post right hemicolectomy on 09/03/2023; Cardiology consulted for valvular heart disease.
Severe TR:
-The patient has a mild HENOK with a creatinine of 1.3; surgical team currently administering IV fluids.
-Monitor volume status for volume overload (primarily lungs for crackles).
NICM:
-EF unknown.
-Currently compensated on examination.
-Will obtain an echocardiogram tomorrow.
-Will follow.
Colon cancer status-post right hemicolectomy on 09/03/2023:
-Management as per primary surgical team; hemodynamically stable.
Heart block status-post permanent pacemaker implantation:
-Appears to be currently stable.
-Try to obtain records from primary [employer].
Paroxysmal atrial fibrillation (on Xarelto):
-Continue current dose of Coreg.
-Resume anticoagulation when cleared by surgical team.
Data Reviewed
-
Critical Care Time (in minutes): 54
[2023-09-05] MEDS: TYLENOL 1000 MG PO ×2 (11:56→17:19)
[2023-09-05 12:05] LABS: Urine Albumin Trace (Neg - Trace); Urine Bilirubin Negative (Negative); Urine Character Clear (Clear); Urine Color Yellow; Urine Glucose Negative (Negative); Urine Ketone Negative (Negative); Urine Leukocyte Trace (Negative); Urine Nitrite Negative (Negative); Urine Occult Blood 1+ (Negative); Urine Urobilinogen Negative (Neg - 1+)
--- NOTE | 2023-09-05 12:13 | W.PN.HOSP.TC ---
Today's Communication/Plan
-
IVF
Pressors if needed
OOB
Reduce coreg
monitor diet tolerance
Assessment / Plan
Assessment / Plan
# Ascending colon cancer status post right hemicolectomy
-Being managed by colorectal surgery
-Patient currently off of Levophed
-BP stabilized
-Continue IV fluids
-started on diet-upgraded to regular
-Pain control
-TOV
-Further management per primary
#Toxic metabolic encephalopathy earlier today likely secondary to scopolamine patch versus likely postanesthesia versus delirium
Patch has been removed.
Mentation patient to monitor closely.
#HENOK likely multifactorial pre Renal (episdoes of hypotension) and renal (ATN with episodes of hypotension overnight) versus AIN due to Toradol
-IVF
-Avoid hypotension
-Avoid NSAIDs. Toradol discontinued
#Normocytic anemia unknown chronicity
-Hemoglobin 8.4
-Continue to monitor. Transfuse hemoglobin less than 7.
Hodgkin's lymphoma
ITP
-Platelets of 85
-continue to monitor
Paroxysmal atrial fibrillation
-Hold Xarelto. Restart pending primary clearance.
-Decrease coreg dose to 12.5mg. Monitor BP/HR
History of AV block status post pacemaker
Nonischemic cardiomyopathy
-restart Coreg with holding parameters -dose decreased
-Chest x-ray from 3 days ago showing small right pleural effusion, moderate cardiomegaly
-check I/Os
-Monitor for heart failure
-Check ECHO in am
Severe tricuspid regurgitation
DVT prophylaxis SCDs and Xarelto on hold
Anticipated Discharge: > 48 hours
Subjective/Interval History
-
Date of Service: September 05, 2023
Intermittent abd pain
no nausea or vomiting
Objective Data
-
Labs:
Laboratory Results
09/05/23
05:32
WBC 7.9
Hgb 8.4 L
Hct 25.3 L
Plt Count 85 L
Sodium 136
Potassium 4.2
Chloride 105
Carbon Dioxide 23
BUN 32 H
Creatinine 1.3 H
Glucose 108 H
Calcium 8.4
Total Bilirubin 1.3
AST 26
ALT 12
Alkaline Phosphatase 77
Vital Signs:
Vital Signs
Temp Pulse Resp BP Pulse Ox
98.4 F 70 12 107/77 95
09/05/23 11:14 09/05/23 08:00 09/05/23 08:00 09/05/23 08:00 09/05/23 08:00
I&O
09/04/23 09/05/23 09/06/23
06:59 06:59 06:59
Intake Total 960 / 1010 1645 / 1645
Output Total 550 / 550 235 / 235
Balance 410 / 460 1410 / 1410
Physical Exam
-
General: Well Developed and No Apparent Distress
HEENT: Normocephalic, Atraumatic and Moist Mucous Membranes
Respiratory: Clear to Auscultation
Cardiac: Regular Rhythm and S1/S2; Negative Murmur, Rub or Gallop
GI: Tender and Distended; Negative Organomegaly
Rectal: Deferred by Provider
Musculoskeletal: No Clubbing, No Cyanosis and No Edema
Skin: Negative Rash
Neuro: Awake and No Motor Deficits
Psych: Calm
Data Reviewed
-
Total Time Spent with Patient (in minutes): 55
[2023-09-05 12:24] LABS: Urine Sodium 16 mmol/L (30-90)
[2023-09-05 13:03] LABS: Urine Bacteria Few (Negative)
--- NOTE | 2023-09-05 13:45 | W.PN.CRS1 ---
Addendum entered and electronically signed by Demarcus Harper MD 09/05/23 14:51:
I saw and examined the patient.
The MALARIOLOGIST's note was reviewed and I agree with the note.
Comment:
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
surgery
POD 2 robotic RHC, tap block
WBC 7.9 from 6.4, Hb 8.4 from 8.9, plts 85, Cr 1.3
�HENOK; will start IV fluids
- Strict I/Os
- Will consult cardiology for assistance with cardiac history in light of need for hydration
� Mildly confused POD1 but oriented, no focal deficits;
-DC'ed scopolamine patch and Lyrica; may also have been lingering side effects from anesthesia
-Confusion resolved today
� Okay to advance to regular, instructed to go slow and discussed with nurse
� Continue pain control with Tylenol, Toradol, low-dose IV Dilaudid as needed; continue Entereg
� Cont DVT PPx with Lovenox, hold Xarelto for now, likely restart tmrw if stable
� Ambulate twice daily and OOBTC, encourage IS
� Appreciate hospitalist
Original Note:
Today's Communication / Plan
-
Advance diet
Assessment/Plan
-
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
surgery
POD 2 robotic RHC, tap block
Voiding s/p gayle removal. Passing flatus/bm's
Mentation improved today, ox3
BP low overnight
Mild HENOK noted with slight rise in Cr to 1.3
� Consult cardiology to follow with us
- IVF initiated overnight given decreased bp
� Hold NSAIDs and follow bmp
� Continue pain control with Tylenol, Tramadol, low-dose IV Dilaudid as needed; d/c Entereg
� Start DVT PPx with Lovenox, hold Xarelto for now. Tentative resumption tomorrow pending patient course
� Ambulate and OOBTC, encourage IS
� Appreciate hospitalist
Subjective Data
Subjective Data
Date of Service: September 05, 2023
Objective Data
-
Vital Signs
Temp Pulse Resp BP Pulse Ox
98.4 F 70 12 107/77 95
09/05/23 11:14 09/05/23 08:00 09/05/23 08:00 09/05/23 08:00 09/05/23 08:00
Intake & Output
09/04/23 09/05/23 09/06/23
06:59 06:59 06:59
Intake Total 960 / 1010 1645 / 1645
Output Total 550 / 550 235 / 235
Balance 410 / 460 1410 / 1410
Intake:
Oral fluids 360 / 360 1220 / 1220
IV fluids (Total) 600 / 650 425 / 425
normosol 600 / 650 425 / 425
Output:
Urine, Gayle 550 / 550 235 / 235
Other:
Number of approximated MODERATE 1
amounts of urine
Lab Results
09/05/23 05:32
09/05/23 05:32
--- NOTE | 2023-09-05 14:08 | PTCARENOTE ---
Pt tolerated reg diet. VSS. OOB in chair. Assessment unchanged
[2023-09-05] MEDS: HEPARIN 5000 UNITS SC (15:28)
--- NOTE | 2023-09-05 17:26 | PTCARENOTE ---
Report given to HARJIT Lay. Pt assisted to wheelchair without any difficulty with ambulation. Escorted to 2 S, rm [id number].
--- NOTE | 2023-09-05 18:42 | PTCARENOTE ---
pt received from ICU at 1540 to room 2108 via WC. AOx3 pleasant. ECG placed. Bed low, call elias in place. Nss 100ml via 18g lw. Regular diet.
[2023-09-05] MEDS: COREG 12.5 MG PO (21:30)
[2023-09-06] VITALS (8 sets, daily range): BP systolic 116–146; BP diastolic 69–105; PULSE 69; O2SAT 100; BMI 24.2
[2023-09-06] MEDS: TYLENOL 1000 MG PO ×5 (00:12→23:50)
[2023-09-06] MEDS: HEPARIN 5000 UNITS SC ×2 (00:12→08:16)
[2023-09-06] MEDS: NSS 1000 IV ×2 (02:31→12:22)
[2023-09-06 08:09] LABS: % Basophils 0.4 % (0-2); % Eosinophils 1.4 % (0-6); % Immature Granulocytes 0.5 % (0-0.5); % Lymphocytes 11.5 % (20.5-51.1); % Monocytes 7.3 % (1.7-9.3); % Neutrophils 78.9 % (42.2-75.2); Absolute Eosinophils 0.1 10^3/uL (0-0.7); Absolute Lymphocytes 0.9 10^3/uL (1.2-3.4); Absolute Monocytes 0.6 10^3/uL (0.1-0.6); Absolute Neutrophils 6.1 10^3/uL (1.4-6.5); Hematocrit 28.1 % (37.0-47.0); Hemoglobin 9.2 g/dL (12.0-16.0); Mean Corp Hgb Conc. 32.7 g/dL (33.0-37.0); Mean Corpuscular Hgb 28.4 pg (27.0-31.0); Mean Corpuscular Volume 86.7 fL (81.0-99.0); Mean Platelet Volume 11.2 fL (7.4-10.4); Nucleated Red Blood Cells % 0 %; Platelet Count 115 10^3/uL (130-400); Red Blood Cell Count 3.24 10^6/uL (4.20-5.40); Red Cell Dist. Width 14.3 % (11.5-14.5); White Blood Cell Count 7.8 10^3/uL (4.8-10.8)
[2023-09-06] MEDS: COREG 12.5 MG PO ×2 (08:15→20:22)
[2023-09-06 08:38] LABS: ALT (SGPT) 12 U/L (0-35); AST (SGOT) 31 U/L (14-36); Albumin 3.2 g/dl (3.5-5.0); Alkaline Phosphatase 85 U/L (38-126); Blood Urea Nitrogen 28 mg/dl (7-17); Calcium 8.4 mg/dl (8.4-10.2); Carbon Dioxide 21 mmol/L (22-30); Chloride 109 mmol/L (98-107); Estimated Creatinine Clearance 55 ml/min; Glucose 109 mg/dl (70-99); Potassium 4.2 mmol/L (3.5-5.1); Sodium 137 mmol/L (135-145); Total Bilirubin 1.1 mg/dl (0.2-1.3); Total Protein 5.7 g/dl (6.3-8.2); eGFR > 60.00
--- NOTE | 2023-09-06 08:40 | W.PN.CD ---
Today's Communication / Plan
-
trend Cr
echo
resume xarelto when safe post op
Impression / Plan
-
68-year-old female (known to Dr. 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
regurgitation, and recently discovered colon cancer status-post right hemicolectomy on 09/03/2023; Cardiology consulted for valvular heart disease.
HENOK
-agree with IV fluids, and trend Cr
Severe TR:
-Monitor volume status for volume overload
-echo today
NICM:
-EF unknown.
-Currently compensated on examination.
-echo this admission
Colon cancer status-post right hemicolectomy on 09/03/2023:
-Management as per primary surgical team; hemodynamically stable.
Heart block status-post permanent pacemaker implantation:
-Appears to be currently stable.
-underlying rhythm appears to be typical atrial flutter
Typical atrial flutter (on Xarelto 20mg daily):
-Continue Coreg.
-Resume anticoagulation when cleared by surgical team.
Physical Exam
Vital Signs/Labs
Vital Signs
Temp Pulse Resp BP Pulse Ox
97.7 F 79 17 140/70 97
09/06/23 07:10 09/06/23 08:15 09/06/23 07:10 09/06/23 08:15 09/06/23 07:10
09/05/23 09/06/23 09/07/23
06:59 06:59 06:59
Actual Weight 65.7 kg 67.948 kg
09/06/23 07:26
09/06/23 07:26
PT 16.7 Sec (11.4-14.6) H 09/04/23 04:36
INR 1.34 09/04/23 04:36
APTT 35.1 Sec (23.4-35.0) H 09/04/23 04:36
Magnesium 2.4 mg/dl (1.6-2.3) H 09/04/23 04:36
Physical Exam
Constitutional: No acute distress and Comfortable
EENT: Moist mucous membranes
Cardiovascular: Rhythm & rate is regular, Pedal edema is absent, JVD pressure is normal and Systolic murmur present
Respiratory: Respiratory effort normal and Lungs clear to auscul.
GI: Soft and Distention absent
Neuro/Psych: AO x 3
Data Reviewed
-
Date of Service: September 06, 2023
EKG: Other (Tele: Vpaced 70)
Labs: Labs Reviewed by me
--- NOTE | 2023-09-06 08:45 | W.PN.HOSP.TC ---
Today's Communication/Plan
-
see bold
Assessment / Plan
Assessment / Plan
# Ascending colon cancer status post right hemicolectomy 09/02
# Postoperative hypotension
-Being managed by colorectal surgery
-Status post Levophed, BP stabilized
-Continue IV fluids, tolerating regular diet
-Voiding status post Newton removal
-Further management per primary
#Toxic metabolic encephalopathy earlier today likely secondary to scopolamine patch versus likely postanesthesia versus delirium
Patch has been removed.
Resolved, patient currently at baseline
#HENOK likely multifactorial pre Renal (episdoes of hypotension) and renal (ATN with episodes of hypotension overnight) versus AIN due to Toradol
-Resolved on IV fluids
-Avoid NSAIDs. Toradol discontinued
#Normocytic anemia unknown chronicity
-Hemoglobin 9.2
-Continue to monitor. Transfuse hemoglobin less than 7.
Hodgkin's lymphoma
ITP
-Improving, continue to trend
Paroxysmal atrial fibrillation
-Resume Xarelto 09/05. Restart pending primary clearance.
-Restarted Coreg 09/04 at 12.5mg BID. Monitor BP/HR
History of AV block status post pacemaker
Nonischemic cardiomyopathy
-Restarted Coreg 09/04 with holding parameters -dose decreased
-Chest x-ray from 3 days ago showing small right pleural effusion, moderate cardiomegaly
-check I/Os
-Monitor for heart failure
-Check ECHO today
Severe tricuspid regurgitation
DVT prophylaxis -cleared by CRS to resume Xarelto 09/05
Total time spent to see the patient on the floor, examine the patient, review data and lab results, discuss treatment plan with patient, nursing staff around 35 minutes.
Physical Exam
General: No acute distress
HEENT: Normocephalic, Atraumatic, EOMI, MMM
Respiratory: Clear to Auscultation bilaterally
Cardiac: Normal S1/S2, Regular Rate and Rhythm
GI: Soft, appropriate frieda-incisional tenderness, incisions clean/dry/intact
Extremities: No Clubbing, Cyanosis, or Edema
Neuro: Nonfocal/Grossly Intact
Psych: Calm, Cooperative
Derm: No Visible lesions
Anticipated Discharge: > 48 hours
Subjective/Interval History
-
Date of Service: September 06, 2023
Patient reports feeling well. She is tolerating her regular diet. No nausea, no vomiting. Her abdominal pain is controlled. Confusion resolved. No fever.
Objective Data
-
Labs:
Laboratory Results
09/06/23
07:26
WBC 7.8
Hgb 9.2 L
Hct 28.1 L
Plt Count 115 L D
Sodium 137
Potassium 4.2
Chloride 109 H
Carbon Dioxide 21 L
BUN 28 H
Creatinine 0.9
Glucose 109 H
Calcium 8.4
Total Bilirubin 1.1
AST 31
ALT 12
Alkaline Phosphatase 85
Vital Signs:
Vital Signs
Temp Pulse Resp BP Pulse Ox
97.7 F 79 17 140/70 97
09/06/23 07:10 09/06/23 08:15 09/06/23 07:10 09/06/23 08:15 09/06/23 07:10
I&O
09/05/23 09/06/23 09/07/23
06:59 06:59 06:59
Intake Total 1645 / 1645 3300 / 3300
Output Total 235 / 235 50 / 50
Balance 1410 / 1410 3250 / 3250
--- NOTE | 2023-09-06 09:29 | W.PN.CRS1 ---
Today's Communication / Plan
-
resume xarelto
echo today
Assessment/Plan
-
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
surgery
POD 3 robotic RHC, tap block
Voiding s/p gayle removal. Passing flatus/bm's
Mentation improved today, ox3
BP low overnight
Mild HENOK noted with slight rise in Cr to 1.3 now 0.9 today.
� Appreciate cardiology. For echo today.
- IVF given BP yesterday.
� Hold NSAIDs and follow bmp
� Continue pain control with Tylenol, Tramadol, low-dose IV Dilaudid as needed.
� Restart Xarelto today.
� Ambulate and OOBTC, encourage IS
� Appreciate hospitalist.
- Plan for dispo after cardiac work up and if BP remains normal.
Subjective Data
Subjective Data
Date of Service: September 06, 2023
Patient states she has no complaints. She has no pain. She denies nausea or vomiting. She has bowel function.
Objective Data
-
Vital Signs
Temp Pulse Resp BP Pulse Ox
97.7 F 79 17 140/70 97
09/06/23 07:10 09/06/23 08:15 09/06/23 07:10 09/06/23 08:15 09/06/23 07:10
Intake & Output
09/05/23 09/06/23 09/07/23
06:59 06:59 06:59
Intake Total 1645 / 1645 3300 / 3300
Output Total 235 / 235 50 / 50
Balance 1410 / 1410 3250 / 3250
Intake:
Oral fluids 1220 / 1220 900 / 900
IV fluids (Total) 425 / 425 2400 / 2400
Nss 1,000 ml @ 100 mls/hr IV . /
Q10H PINA Rx#:[id number]
normosol 425 / 425 100 / 100
Output:
Urine, Gayle 235 / 235
Urine, Voided 50 / 50
Other:
Number of approximated SMALL 1
amounts of urine
Number of approximated MODERATE 1
amounts of urine
Number of approximated LARGE 3
amounts of urine
Lab Results
09/06/23 07:26
09/06/23 07:26
Physical Exam
-
General: No Acute Distress and AOx3
Abdomen: Soft, Non Distended and Non Tender
Skin: Warm and Dry
Incision: Clear, Dry, Intact
--- NOTE | 2023-09-06 14:24 | CM ---
CM reviewed chart and ADC noted for >48 hours
Bedside meeting with pt
SNF initially recommended by therapy but PT note today notes progress and VN recommendations
Pt would like to think about VN as she's not sure if it will be required on dc
CM agreed to discuss again closer to dc if remains recommended
Discharge Disposition- home with VN vs no needs
[2023-09-06] MEDS: XARELTO 20 MG PO (18:11)
[2023-09-07] MEDS: NSS 1000 IV (00:34)
[2023-09-07 03:23] VITALS: BP 138/91
[2023-09-07 05:33] LABS: Hematocrit 28.9 % (37.0-47.0); Hemoglobin 9.3 g/dL (12.0-16.0); Mean Corp Hgb Conc. 32.2 g/dL (33.0-37.0); Mean Corpuscular Hgb 28.1 pg (27.0-31.0); Mean Corpuscular Volume 87.3 fL (81.0-99.0); Mean Platelet Volume 10.9 fL (7.4-10.4); Platelet Count 110 10^3/uL (130-400); Red Blood Cell Count 3.31 10^6/uL (4.20-5.40); Red Cell Dist. Width 14.4 % (11.5-14.5); White Blood Cell Count 7.9 10^3/uL (4.8-10.8)
[2023-09-07] MEDS: TYLENOL PO (05:53)
[2023-09-07 06:00] VITALS: BMI 24.5
[2023-09-07 06:02] LABS: Blood Urea Nitrogen 18 mg/dl (7-17); Calcium 8.6 mg/dl (8.4-10.2); Carbon Dioxide 18 mmol/L (22-30); Chloride 112 mmol/L (98-107); Estimated Creatinine Clearance 71 ml/min; Glucose 119 mg/dl (70-99); Magnesium 2.3 mg/dl (1.6-2.3); Potassium 4.9 mmol/L (3.5-5.1); Sodium 140 mmol/L (135-145); eGFR > 60.00
[2023-09-07 07:10] VITALS: BP 136/91
[2023-09-07] MEDS: COREG 12.5 MG PO (08:42)
--- NOTE | 2023-09-07 09:13 | W.PN.CD ---
Today's Communication / Plan
-
stable from cardiac perspective
cardiac meds on d/c: coreg 25mg bid, xarelto 20mg daily
please call us back with additional questions
Impression / Plan
-
68-year-old female (known to Dr. Dobson, her primary Crisis Clinician at [facility]) with heart block status-post permanent pacemaker implantation, typical atrial flutter (on Xarelto), NICM (current EF unknown), severe tricuspid
regurgitation, and recently discovered colon cancer status-post right hemicolectomy on 09/03/2023; Cardiology consulted for valvular heart disease.
HENOK
-resolved with IV fluids
Severe TR:
-echo this admission shows LVEF 50-55%, dilated RV with decreased RV fx, and severe TR--which seems stable based on comparison to outside report
NICM:
-LVEF 50-55%, with RV dysfunction
-Currently compensated on examination.
Colon cancer status-post right hemicolectomy on 09/03/2023:
-Management as per primary surgical team; hemodynamically stable.
Heart block status-post permanent pacemaker implantation:
-Appears to be currently stable.
-underlying rhythm appears to be typical atrial flutter
Typical atrial flutter (on Xarelto 20mg daily):
-Continue Coreg: increase to home dose of 25mg bid
-xarelto has been resumed
Physical Exam
Vital Signs/Labs
Vital Signs
Temp Pulse Resp BP Pulse Ox
97.8 F 71 18 136/91 95
09/07/23 07:10 09/07/23 07:10 09/07/23 07:10 09/07/23 08:42 09/07/23 07:10
09/06/23 09/07/23 09/08/23
06:59 06:59 06:59
Actual Weight 67.948 kg 68.946 kg
09/07/23 04:47
09/07/23 04:47
PT 16.7 Sec (11.4-14.6) H 09/04/23 04:36
INR 1.34 09/04/23 04:36
APTT 35.1 Sec (23.4-35.0) H 09/04/23 04:36
Magnesium 2.3 mg/dl (1.6-2.3) 09/07/23 04:47
Physical Exam
Constitutional: No acute distress and Comfortable
EENT: Moist mucous membranes
Cardiovascular: Rhythm & rate is regular, Pedal edema is absent, JVD present and Systolic murmur present
Respiratory: Respiratory effort normal and Lungs clear to auscul.
GI: Soft and Distention absent
Neuro/Psych: AO x 3
Data Reviewed
-
Date of Service: September 07, 2023
EKG: Other (V paced)
Echo: Tracing Personally Visualized and interpreted
Labs: Labs Reviewed by me
--- NOTE | 2023-09-07 10:27 | W.PN.CRS1 ---
Today's Communication / Plan
-
Okay for DC
Assessment/Plan
-
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
surgery
POD 3 robotic RHC, tap block
WBC 7.9 Hb 9.3 from 9.2, plts 110, Cr 0.7
�HENOK; resolved
- Post-op confusion, resolved; likely related to anesthesia vs side-effect of scopolamine/lyrica
� Cont reg
� Continue pain control with Tylenol, Toradol, low-dose IV Dilaudid as needed; continue Entereg
� Cont Xarelto
� Ambulate twice daily and OOBTC, encourage IS
Dispo � Ok for d/c today with f/u in 1-2 weeks
Subjective Data
Subjective Data
Date of Service: September 07, 2023
No overnight events.
Pain controlled.
Denies nausea/vomiting. Tolerating diet.
+flatus +BMs (Nonbloody, but dark) +voiding
Pt is OOB.
Objective Data
-
Vital Signs
Temp Pulse Resp BP Pulse Ox
97.8 F 71 18 136/91 95
09/07/23 07:10 09/07/23 07:10 09/07/23 07:10 09/07/23 08:42 09/07/23 07:10
Intake & Output
09/06/23 09/07/23 09/08/23
06:59 06:59 06:59
Intake Total 3300 / 3300 1440 / 1440
Output Total 50 / 50
Balance 3250 / 3250 1440 / 1440
Intake:
Oral fluids 900 / 900 240 / 240
IV fluids (Total) 2400 / 2400 1200 / 1200
Nss 1,000 ml @ 100 mls/hr IV . 900 / 900
Q10H PINA Rx#:[id number]
normosol 100 / 100
Output:
Urine, Voided 50 / 50
Other:
Number of approximated SMALL 1
amounts of urine
Number of approximated MODERATE 2
amounts of urine
Number of approximated LARGE 3
amounts of urine
Lab Results
09/07/23 04:47
09/07/23 04:47
Physical Exam
-
General: No Acute Distress and AOx3
HEENT: Grossly Normal
Abdomen: Soft, Non Distended, Tender (Appropriately tender near incisions, incisions with some surrounding ecchymosis (stable from yesterday)), No Guarding and No Rebound
Skin: Warm and Dry
Wound: No Signs of Infection and Dressing in Place (With Dermabond)
Incision: No Skin Erythema and Other (No drainage)
--- NOTE | 2023-09-07 11:00 | W.DS.TRANS ---
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
-
Discharge Instructions:
Sleep Apnea Risk Low
Discharge Diagnosis/Procedures Ascending colon cancer
Diet Regular
Activity No strenuous activity
Additional Activity No lifting over 10lbs (gallon of milk)
Driving Restrictions No driving for 1 week
Bathing Restrictions OK to Shower
Wound Care Allow glue to naturally fall off. Do not pick at
incisions.
Instructions:
Stand-Alone Forms:
Changes to Home Medications: Yes
Discharge Medications:
DC Medications w/original date entered in [facility]
calcium carbonate 600 mg-vitamin D3 5 mcg (200 unit) tablet 1 tab PO BID Supplement 08/05/23
carvedilol 25 mg tablet 25 mg PO BID Blood Pressure 08/05/23
rivaroxaban 20 mg tablet (Xarelto) 20 mg PO DAILY Blood Clot Prevention/Tx 08/05/23
tramadol 50 mg tablet 50 mg PO Q6HPRN PRN moderate pain #20 tabs 09/06/23
Home Medication Changes
tramadol 50 mg tablet 50 mg PO Q6HPRN PRN moderate pain #20 tabs 09/06/23
Pending Results: Yes
Additional Pending Results:
OR pathology
[2023-09-07 11:20] VITALS: BP 130/87
--- NOTE | 2023-09-07 12:36 | CM ---
Met with patient to review if she needed or wanted home PT. She does not think she needs it. SHe is up using rolling walker to get around room and into bathroom.
PLAN: home no needs today.
== END 2023-09-07 13:01 | disposition home or self-care (01) | DRG 329 ==
LOC: 2 SOUTH 12:42
PROVIDERS: Family Medicine; Hospitalist; Nurse Practitioner Primary Care; ADMITTING PHYSICIAN Surgery; CONSULT PHYSICIAN Internal Medicine; CONSULT PHYSICIAN Internal Medicine Critical Care Medicine; FAMILY PHYSICIAN Internal Medicine; OTHER PHYSICIAN Hospitalist
PROC: 3E0T33Z Introduction of Anti-inflammatory into Peripheral Nerves and Plexi, Percutaneous Approach (ICD-10-PCS; 2023-09-03)
PROC: 0DTF4ZZ Resection of Right Large Intestine, Percutaneous Endoscopic Approach (ICD-10-PCS; 2023-09-03)
PROC: 3E0T3BZ Introduction of Anesthetic Agent into Peripheral Nerves and Plexi, Percutaneous Approach (ICD-10-PCS; 2023-09-03)
PROC: 4A1BXSH Monitoring of Gastrointestinal Vascular Perfusion using Indocyanine Green Dye, External Approach (ICD-10-PCS; 2023-09-03)
PROC: 8E0W4CZ Robotic Assisted Procedure of Trunk Region, Percutaneous Endoscopic Approach (ICD-10-PCS; 2023-09-03)
DX: C18.2 Malignant neoplasm of ascending colon (principal); G92.8 Other toxic encephalopathy; N17.0 Acute kidney failure with tubular necrosis; C81.90 Hodgkin lymphoma, unspecified, unspecified site; D69.3 Immune thrombocytopenic purpura; I42.8 Other cardiomyopathies; E87.20 Acidosis, unspecified; I95.81 Postprocedural hypotension; K76.89 Other specified diseases of liver; I48.0 Paroxysmal atrial fibrillation; I44.30 Unspecified atrioventricular block; I08.1 Rheumatic disorders of both mitral and tricuspid valves; K21.9 Gastro-esophageal reflux disease without esophagitis; D64.9 Anemia, unspecified; Z95.0 Presence of cardiac pacemaker; Z79.01 Long term (current) use of anticoagulants; Z80.8 Family history of malignant neoplasm of other organs or systems; Z80.0 Family history of malignant neoplasm of digestive organs
CPT/HCPCS: 88309; 36415; 71045; 71046; 80048; 80053; 81003; 81015; 82570; 83735; 84100; 84300; 85025; 85027; 85610; 85730; 86850; 86900; 86901; 86920; 88341; 88342; 93005; 93306; 97116; 97163; 97530

== ENCOUNTER 2023-09-19 11:45 | Emergency (ER) | payer MEDICARE, OTHER, SELFPAY ==
[2023-09-19 11:50] VITALS: BP 117/79
[2023-09-19 12:16] VITALS: BMI 23.9
--- NOTE | 2023-09-19 13:04 | ED.GENMED ---
History of Present Illness
General
Chief Complaint: Post Operative Problem(s)
Source: patient
Exam Limitations: none
Time Seen by Provider: 09/19/23 12:40
History of Present Illness
History of Present Illness:
68-year-old female presents emergency department due to leakage from an incision. 09/03/2023 she had a colectomy by Dr. Demarcus Harper. This was for colon cancer. Leaking began on
Past History
Past History
ED Past Medical History: Arrthythmia, Cancer (Colon cancer, Hodgkin's lymphoma, ITP), CHF, GERD and HTN
ED Past Surgical History: Bowel resection, Cardiac (Pacemaker) and Tonsilectomy
Social History
Tobacco: Non-smoker
Alcohol: None
Drug: None
Review of Systems
Review of Systems
Allergies reviewed?: Yes
All Other Systems: Not applicable
Constitutional: Reports no symptoms
EENT: Reports no symptoms
Respiratory: Reports no symptoms
Cardiac: Reports no symptoms
ABD/GI: Reports no symptoms
: Reports no symptoms
Musculoskeletal: Reports no symptoms
Skin: Reports other (Leakage from abdominal incision wound)
Neurological: Reports no symptoms
Endocrine: Reports no symptoms
Hematologic/Lymphatic: Reports no symptoms
Psychiatric: Reports no symptoms
Phy Exam
Physical Exam
Physical Exam:
Physical Exam
General: no apparent distress, not acutely ill
Neck: supple. no meningeal signs. normal posterior pharynx
Heart: s1/s2 regular rate and rhythm, no murmur. equal radial
pulses.
HEENT: Pupils equal round reactive to light, EOMI
Lungs: no acute respiratory distress. clear bilaterally
Abdomen: normal bowel sounds. not tender. no CVAT
Neuro: alert and oriented. no focal neurological deficits cranial nerves II through XII intact
Skin: no rash
Psychiatric: well kept. interactive and cooperative
Extremities: no edema. no calf tenderness. negative homans. good distal pulses
Course
Orders/Labs/Results
Orders:
Orders
09/19/23 13:03
CT Abd/pel W Iv And Oral Contr Urgent
Comment:
Reason For Exam: post oper wound leak
IV Insert/Care/Rem.- Treatment PRN
Iohexol [Omnipaque] See Protocol PO NOW STA
09/19/23 13:36
Complete Blood Count/With Diff Urgent
Comprehensive Metabolic Panel Urgent
Abnormal Lab Results
09/19/23
13:36
RBC 2.96 L 10^6/uL
(4.20-5.40)
Hgb 8.0 L g/dL
(12.0-16.0)
Hct 25.0 L %
(37.0-47.0)
MCHC 32.0 L g/dL
(33.0-37.0)
RDW 15.1 H %
(11.5-14.5)
Absolute Monos (auto) 0.7 H 10^3/uL
(0.1-0.6)
Lymphocytes % 20.1 L %
(20.5-51.1)
Monocytes % 12.0 H %
(1.7-9.3)
Glucose 100 H mg/dl
(70-99)
Total Bilirubin 1.6 H mg/dl
(0.2-1.3)
Total Protein 6.2 L g/dl
(6.3-8.2)
09/19/23 13:36
09/19/23 13:36
Vital Signs
Initial and Last Documented VS:
Initial Vital Signs
Temp Pulse Resp BP Pulse Ox
98.1 F 70 16 117/79 98
09/19/23 11:50 09/19/23 11:50 09/19/23 11:50 09/19/23 11:50 09/19/23 11:50
Last Documented Vital Signs
Temp Pulse Resp BP Pulse Ox
98.1 F 70 18 128/94 98
09/19/23 11:50 09/19/23 15:54 09/19/23 15:54 09/19/23 15:54 09/19/23 15:54
MDM/Problems Addressed
Differential Diagnosis Includes:
Wound dehiscence
MDM/Problems Addressed:
68-year-old female with intra-abdominal ascites, with wound leakage of serosanguineous fluid. Discussed with Dr. Demarcus Harper, who reviewed and agrees patient is stable for discharge. Patient will follow-up with gastroenterology and colorectal.
Chronic conditions affecting care: Cancer
Acute Exacerbation and/or Progression of Chronic Illness: Cancer
*Radiology
Radiology exam reviewed: radiology read reviewed (CT abdomen pelvis shows hepatomegaly, pleural effusions, ascites, no wound dehiscence or leakage at anastomosis)
*Pulse Oximetry
Patient hypoxic: no
*EKG
Interpreted by ED Provider?: NA
*Forensic Identification Specialist Interpretation
Rate: Forensic Identification Specialist- N/A
*Critical Care Note
Total Time (30-74mins, 75-104mins- exclusive of procedures): Not Applicable
Data Reviewed
Review of Other/Old Records Reveals: Operative Reports (Colectomy 09/03/[address] Demarcus Harper)
Source: records
Patient Management
Social determinants of health affecting care: Living situation
Discussion with other providers: Crossing Supervisor (Dr. Demarcus Harper, colorectal surgeon)
Escalation/DeEscalation of care consider admission/obs:
Admit not indicated
ED Attending Note
-
Portions of this chart may have been created with voice recognition software.� Occasional wrong word or��sound alike� substitutions may have occurred due to the inherent limitations of voice recognition software.
Discharge Plan
Departure
Patient Disposition: Home (Routine Discharge)
Date of Disposition: 09/19/23
Time of Disposition: 17:03
Patient with high blood pressure during this ER visit?: Yes
Condition: Good
Discharge Problem:
Encounter for post surgical wound check
Instructions: Wound Care (DC), BLOOD PRESSURE
Prescriptions:
No Action
carvedilol 25 mg Tablet
25 mg PO BID
calcium carbonate-vitamin D3 600 mg-5 mcg (200 unit) Tablet
1 tab PO BID
Xarelto 20 mg Tablet
20 mg PO DAILY
tramadol 50 mg Tablet
50 mg PO Q6HPRN PRN (Reason: moderate pain) Qty: 20 0RF
Referrals:
Jules Masterson MD [Family Provider] -
Ceferino Horton MD [Active] - Call in 1-3 days for appt
Interventions
Interventions:
*Risk Screen - Suicide Last Done: 09/19/23 12:16
*General Assessment Last Done: 09/19/23 12:16
*Neglect/Abuse Screening Last Done: 09/19/23 12:16
ED- Fall Risk Assessment Last Done: 09/19/23 12:20
*ED COVID-19 Vaccine History Last Done: 09/19/23 11:50
*Nursing Disposition Last Done: 09/19/23 17:41
ED-Skin Assessment Last Done: 09/19/23 12:19
Discharge Date and Time
Discharge Date/Time: 09/19/23 17:42
Print Language: [id number]
[2023-09-19] MEDS: OMNIPAQUE 50 ML PO (13:19)
[2023-09-19 13:40] VITALS: BP 125/89
[2023-09-19 13:47] LABS: % Eosinophils 2.3 % (0-6); % Immature Granulocytes 0.3 % (0-0.5); % Lymphocytes 20.1 % (20.5-51.1); % Neutrophils 64.3 % (42.2-75.2); Absolute Basophils 0.1 10^3/uL (0-0.2); Absolute Eosinophils 0.1 10^3/uL (0-0.7); Absolute Lymphocytes 1.2 10^3/uL (1.2-3.4); Absolute Monocytes 0.7 10^3/uL (0.1-0.6); Absolute Neutrophils 3.9 10^3/uL (1.4-6.5); Mean Corpuscular Volume 84.5 fL (81.0-99.0); Mean Platelet Volume 9.8 fL (7.4-10.4); Nucleated Red Blood Cells % 0 %; Platelet Count 191 10^3/uL (130-400); Red Blood Cell Count 2.96 10^6/uL (4.20-5.40); Red Cell Dist. Width 15.1 % (11.5-14.5)
[2023-09-19 14:07] LABS: ALT (SGPT) 13 U/L (0-35); AST (SGOT) 24 U/L (14-36); Albumin 3.6 g/dl (3.5-5.0); Alkaline Phosphatase 110 U/L (38-126); Blood Urea Nitrogen 16 mg/dl (7-17); Calcium 9.1 mg/dl (8.4-10.2); Carbon Dioxide 25 mmol/L (22-30); Chloride 107 mmol/L (98-107); Estimated Creatinine Clearance 62 ml/min; Glucose 100 mg/dl (70-99); Sodium 140 mmol/L (135-145); Total Bilirubin 1.6 mg/dl (0.2-1.3); Total Protein 6.2 g/dl (6.3-8.2); eGFR > 60.00
[2023-09-19 15:54] VITALS: BP 128/94
== END 2023-09-19 17:42 | disposition home or self-care (01) ==
LOC: EMR 11:45
PROVIDERS: EMERGENCY PHYSICIAN Emergency Medicine; FAMILY PHYSICIAN Internal Medicine
DX: Z48.01 Encounter for change or removal of surgical wound dressing (principal); I11.0 Hypertensive heart disease with heart failure; I50.9 Heart failure, unspecified; K21.9 Gastro-esophageal reflux disease without esophagitis; D69.3 Immune thrombocytopenic purpura; Z85.71 Personal history of Hodgkin lymphoma; Z95.0 Presence of cardiac pacemaker
CPT/HCPCS: 99284; 74177; 80053; 85025; Q9967

== ENCOUNTER 2024-09-11 06:11 | Day surgery (SDC) | payer MEDICARE, OTHER, SELFPAY ==
[2024-09-11 09:05] VITALS: BMI 19.0
[2024-09-11 09:06] VITALS: BMI 19.0
[2024-09-11 09:14] VITALS: BP 126/81
[2024-09-11 11:34] VITALS: BP 95/69
[2024-09-11 11:45] VITALS: BP 124/77
[2024-09-11 12:00] VITALS: BP 133/81
== END 2024-09-11 12:20 | disposition home or self-care (01) ==
LOC: SDS 06:11
PROVIDERS: ATTENDING PHYSICIAN Internal Medicine Gastroenterology
DX: C7A.020 Malignant carcinoid tumor of the appendix (principal); D12.3 Benign neoplasm of transverse colon; K63.5 Polyp of colon; K62.1 Rectal polyp; K64.8 Other hemorrhoids; Z98.0 Intestinal bypass and anastomosis status
CPT/HCPCS: 45385; 45380; 88305

== ENCOUNTER → 2025-03-05 08:22 | Outpatient (REF) | payer MEDICARE, OTHER, SELFPAY ==
[2025-03-05 08:30] VITALS: BP 116/68; BP_SYST 71
== END ==
LOC: RADI 08:22
PROVIDERS: ATTENDING PHYSICIAN Internal Medicine Critical Care Medicine; FAMILY PHYSICIAN Internal Medicine
DX: J90 Pleural effusion, not elsewhere classified (principal); Z53.8 Procedure and treatment not carried out for other reasons
CPT/HCPCS: 76604